=== PATIENT | male | born 1975 | race Caucasian/White ===

== ENCOUNTER → 2022-03-20 15:35 | Outpatient (CLI) | payer BC, SELFPAY ==
[2022-03-20 18:54] LABS: Basophils # 0.1 K/mm3 (0-0.2); Basophils % 1.5 % (0.1-2.0); Eosinophils # 0.2 K/mm3 (0.0-0.4); Eosinophils % 2.7 % (0.1-12.0); Hematocrit 42.4 % (42.0-52.0); Hemoglobin 13.7 g/dL (14.1-18.0); Lymphocytes # 1.7 K/mm3 (0.7-4.5); Lymphocytes % 32.1 % (10-50); Mean Corpuscular HGB Conc 32.5 g/dL (31.8-35.4); Mean Corpuscular Hemoglobin 32.5 pg (27.0-31.2); Mean Platelet Volume 9.3 fl (7.4-10.4); Monocytes # 0.4 K/mm3 (0.1-1.0); Monocytes % 6.6 % (1.7-9.3); Neutrophils # 3.1 K/mm3 (1.8-7.8); Neutrophils % 57.1 % (37.0-80.0); Platelet Count 187 K/mm3 (142-424); Red Blood Count 4.24 M/mm3 (4.60-6.20); White Blood Count 5.4 K/mm3 (4.8-10.8)
[2022-03-20 18:57] LABS: Alanine Aminotransferase 23 U/L (12-78); Albumin Level 4.6 g/dl (3.5-5.0); Albumin/Globulin Ratio 1.9 (1.1-1.8); Alkaline Phosphatase 57 U/L (38-126); Aspartate Amino Transferase 34 U/L (17-59); Bilirubin,Total 0.4 mg/dl (0.2-1.3); Blood Urea Nitrogen 18 mg/dl (9-20); Calcium 9.1 mg/dl (8.4-10.2); Carbon Dioxide 20 mmol/L (22.0-30.0); Chloride 98 mmol/L (98-107); Chol/HDL Ratio 2.3 (1-3.5); Cholesterol 211 mg/dl (140-200); Estimated Glomerular Filt Rate 91 ml/min (>60); GFR (African American) 110 ML/MIN (>60); Globulin 2.4 g/dL (1.3-3.2); Glucose 114 mg/dl (74-100); HDL Cholesterol 91 mg/dl (40-60); Sodium 130 mmol/L (136-145); Triglycerides 59 mg/dl (30-150); VLDL Cholesterol 12 mg/dL (0-40)
[2022-03-20 19:15] LABS: 25-OH Vitamin D, Total 105 ng/mL (30-100); Direct LDL Cholesterol 93.47 mg/dL (100-129)
[2022-03-20 19:28] LABS: Prostate Specific Ag Screen 0.6 ng/ml (0.0-4.0); Thyroid Stimulating Hormone 2.08 uIU/mL (0.465-4.68)
[2022-03-20 19:44] LABS: Hemoglobin A1C 5.3 % (4.0-6.0)
[2022-03-20 19:47] LABS: Vitamin B12 378 pg/mL (239-931)
== END ==
PROVIDERS: PCP Nurse Practitioner; Visit Provider Nurse Practitioner
DX: I10 Essential (primary) hypertension (principal); E55.9 Vitamin D deficiency, unspecified; E53.8 Deficiency of other specified B group vitamins; Z12.5 Encounter for screening for malignant neoplasm of prostate; Z79.899 Other long term (current) drug therapy
CPT/HCPCS: 80053; 80061; 82306; 82607; 83036; 84443; 85025; G0103

== ENCOUNTER → 2023-05-01 06:50 | Outpatient (CLI) | payer BC, SELFPAY ==
[2023-05-01 19:24] LABS: Basophils # 0.1 K/mm3 (0-0.2); Basophils % 0.8 % (0.1-2.0); Eosinophils # 0.1 K/mm3 (0.0-0.4); Eosinophils % 1.4 % (0.1-12.0); Hematocrit 41.4 % (42.0-52.0); Hemoglobin 14.5 g/dL (14.1-18.0); Lymphocytes # 2.6 K/mm3 (0.7-4.5); Lymphocytes % 43.4 % (10-50); Mean Corpuscular HGB Conc 34.9 g/dL (31.8-35.4); Mean Corpuscular Hemoglobin 33.8 pg (27.0-31.2); Mean Corpuscular Volume 96.9 fl (80-94); Mean Platelet Volume 9.4 fl (7.4-10.4); Monocytes # 0.5 K/mm3 (0.1-1.0); Monocytes % 8.7 % (1.7-9.3); Neutrophils # 2.7 K/mm3 (1.8-7.8); Neutrophils % 45.7 % (37.0-80.0); Platelet Count 206 K/mm3 (142-424); Red Blood Count 4.27 M/mm3 (4.60-6.20); Red Cell Distribution Width 12.8 % (11.5-17.5)
[2023-05-01 20:07] LABS: Alanine Aminotransferase 24 U/L (12-78); Albumin Level 4.3 g/dl (3.5-5.0); Albumin/Globulin Ratio 1.5 (1.1-1.8); Alkaline Phosphatase 43 U/L (38-126); Anion Gap 10.6 mEq/L (5-15); Aspartate Amino Transferase 30 U/L (17-59); Bilirubin,Total 0.3 mg/dl (0.2-1.3); Blood Urea Nitrogen 14 mg/dl (9-20); Calcium 8.6 mg/dl (8.4-10.2); Carbon Dioxide 25 mmol/L (22.0-30.0); Chloride 93 mmol/L (98-107); Chol/HDL Ratio 2.1 (1-3.5); Cholesterol 196 mg/dl (140-200); Estimated Glomerular Filt Rate 80 ml/min (>60); GFR (African American) 97 ML/MIN (>60); Globulin 2.8 g/dL (1.3-3.2); Glucose 98 mg/dl (74-100); HDL Cholesterol 94 mg/dl (40-60); Potassium 4.6 mmoL/L (3.5-5.1); Sodium 124 mmol/L (136-145); Total Protein,Serum 7.1 g/dl (6.3-8.2); Triglycerides 59 mg/dl (30-150); VLDL Cholesterol 12 mg/dL (0-40)
[2023-05-01 20:16] LABS: 25-OH Vitamin D, Total 87.5 ng/mL (30-100)
[2023-05-01 20:18] LABS: Direct LDL Cholesterol 96.55 mg/dL (100-129)
[2023-05-01 20:39] LABS: Hemoglobin A1C 5.2 % (4.0-6.0)
[2023-05-01 20:41] LABS: Prostate Specific Ag Screen 0.6 ng/ml (0.0-4.0); Thyroid Stimulating Hormone 2.25 uIU/mL (0.465-4.68)
[2023-05-01 20:59] LABS: Vitamin B12 727 pg/mL (239-931)
[2023-05-01 22:31] LABS: Creatinine,Urine Random 78 mg/dL (Not Estab.); Microalbumin < 6.000 mg/L (0-16.7)
== END ==
LOC: LAB.DROPOF 05-02 06:50
PROVIDERS: PCP Nurse Practitioner; Visit Provider Nurse Practitioner
DX: E53.8 Deficiency of other specified B group vitamins (principal); E55.9 Vitamin D deficiency, unspecified; I10 Essential (primary) hypertension; M32.9 Systemic lupus erythematosus, unspecified; Z12.5 Encounter for screening for malignant neoplasm of prostate
CPT/HCPCS: 80053; 80061; 82043; 82306; 82570; 82607; 83036; 84443; 85025; G0103

== ENCOUNTER 2023-12-04 11:08 | Outpatient (CLI) | payer BC, SELFPAY ==
[2023-12-04 18:29] LABS: Alanine Aminotransferase 75 U/L (12-78); Albumin Level 4.3 g/dl (3.5-5.0); Albumin/Globulin Ratio 1.7 (1.1-1.8); Alkaline Phosphatase 44 U/L (38-126); Anion Gap 10.6 mEq/L (5-15); Aspartate Amino Transferase 70 U/L (17-59); Bilirubin,Total 0.7 mg/dl (0.2-1.3); Blood Urea Nitrogen 14 mg/dl (9-20); Calcium 9.5 mg/dl (8.4-10.2); Carbon Dioxide 24 mmol/L (22.0-30.0); Chloride 94 mmol/L (98-107); Estimated Glomerular Filt Rate 121 ml/min (>60); GFR (African American) 147 ML/MIN (>60); Globulin 2.5 g/dL (1.3-3.2); Glucose 95 mg/dl (74-100); Potassium 4.6 mmoL/L (3.5-5.1); Sodium 124 mmol/L (136-145); Total Protein,Serum 6.8 g/dl (6.3-8.2)
== END 2023-12-04 23:59 | disposition home or self-care (01) ==
LOC: LAB.DROPOF 12-05 11:08
PROVIDERS: PCP Nurse Practitioner; Visit Provider Nurse Practitioner
DX: I10 Essential (primary) hypertension (principal)
CPT/HCPCS: 80053

== ENCOUNTER 2024-06-02 15:35 | Outpatient (CLI) | payer BC, SELFPAY ==
[2024-06-02 18:16] LABS: Basophils # 0.1 K/mm3 (0-0.2); Basophils % 1.1 % (0.1-2.0); Eosinophils # 0.1 K/mm3 (0.0-0.4); Eosinophils % 2.2 % (0.1-12.0); Hematocrit 40.5 % (42.0-52.0); Hemoglobin 14.6 g/dL (14.1-18.0); Lymphocytes # 2.2 K/mm3 (0.7-4.5); Lymphocytes % 39.1 % (10-50); Mean Corpuscular Hemoglobin 33.6 pg (27.0-31.2); Mean Corpuscular Volume 93.3 fl (80-94); Monocytes # 0.5 K/mm3 (0.1-1.0); Monocytes % 8.9 % (1.7-9.3); Neutrophils # 2.7 K/mm3 (1.8-7.8); Neutrophils % 48.5 % (37.0-80.0); Platelet Count 196 K/mm3 (142-424); Red Blood Count 4.34 M/mm3 (4.60-6.20); Red Cell Distribution Width 12.2 % (11.5-17.5); White Blood Count 5.5 K/mm3 (4.8-10.8)
[2024-06-02 19:31] LABS: Alanine Aminotransferase 20 U/L (12-78); Alkaline Phosphatase 42 U/L (38-126); Aspartate Amino Transferase 28 U/L (17-59); Bilirubin,Total 0.4 mg/dl (0.2-1.3); Blood Urea Nitrogen 16 mg/dl (9-20); Chloride 99 mmol/L (98-107); Estimated Glomerular Filt Rate 80 ml/min (>60); GFR (African American) 97 ML/MIN (>60); Glucose 94 mg/dl (74-100); Potassium 4.4 mmoL/L (3.5-5.1); Sodium 129 mmol/L (136-145); Total Protein,Serum 6.9 g/dl (6.3-8.2)
[2024-06-02 19:45] LABS: Albumin Level 4.6 g/dl (3.5-5.0); Anion Gap 12.4 mEq/L (5-15); Carbon Dioxide 22 mmol/L (22.0-30.0); Globulin 2.3 g/dL (1.3-3.2)
[2024-06-02 19:58] LABS: 25-OH Vitamin D, Total 91.8 ng/mL (30-100)
[2024-06-02 20:16] LABS: Prostate Specific Ag Screen 0.5 ng/ml (0.0-4.0); Thyroid Stimulating Hormone 1.57 uIU/mL (0.465-4.68)
[2024-06-02 20:35] LABS: Vitamin B12 556 pg/mL (239-931)
[2024-06-02 21:23] LABS: Microalbumin/Creatinine Ratio 11.1
[2024-06-02 21:25] LABS: Creatinine,Urine Random 85 mg/dL (Not Estab.)
[2024-06-02 21:27] LABS: Hemoglobin A1C 5.2 % (4.0-6.0)
== END 2024-06-02 23:59 | disposition home or self-care (01) ==
LOC: LAB.DROPOF 06-04 08:43
PROVIDERS: PCP Nurse Practitioner; Visit Provider Nurse Practitioner
DX: Z12.5 Encounter for screening for malignant neoplasm of prostate (principal); E53.8 Deficiency of other specified B group vitamins; E55.9 Vitamin D deficiency, unspecified; M32.9 Systemic lupus erythematosus, unspecified; I10 Essential (primary) hypertension; Z68.27 Body mass index [BMI] 27.0-27.9, adult; E66.3 Overweight; F17.200 Nicotine dependence, unspecified, uncomplicated
CPT/HCPCS: 80053; 82043; 82306; 82570; 82607; 83036; 84443; 85025; G0103

== ENCOUNTER 2025-01-14 15:51 | Outpatient (CLI) | payer BC, SELFPAY ==
[2025-01-14 21:09] LABS: Albumin Level 4.6 g/dl (3.5-5.0); Chloride 94 mmol/L (98-107)
[2025-01-14 21:10] LABS: Potassium 4.6 mmoL/L (3.5-5.1); Sodium 125 mmol/L (136-145)
[2025-01-14 21:12] LABS: Alanine Aminotransferase 26 U/L (12-78); Anion Gap 11.6 mEq/L (5-15); Aspartate Amino Transferase 31 U/L (17-59); Blood Urea Nitrogen 11 mg/dl (9-20); Carbon Dioxide 24 mmol/L (22.0-30.0); Creatinine,Serum 0.70 mg/dl (0.66-1.25); Estimated Glomerular Filt Rate 120 ml/min (>60); GFR (African American) 146 ML/MIN (>60)
[2025-01-14 21:13] LABS: Albumin/Globulin Ratio 1.9 (1.1-1.8); Alkaline Phosphatase 46 U/L (38-126); Bilirubin,Total 0.7 mg/dl (0.2-1.3); Calcium 9.5 mg/dl (8.4-10.2); Cholesterol 212 mg/dl (140-200); Globulin 2.4 g/dL (1.3-3.2); Glucose 72 mg/dl (74-100); HDL Cholesterol 92 mg/dl (40-60); Total Protein,Serum 7.0 g/dl (6.3-8.2); Triglycerides 59 mg/dl (30-150)
[2025-01-14 21:32] LABS: 25-OH Vitamin D, Total 72.5 ng/mL (30-100)
[2025-01-14 23:09] LABS: Vitamin B12 1560 pg/mL (239-931)
--- OUTSIDE RECORDS SUMMARY | 2025-01-15 13:16 | XMS_ITS | Encounter Summary ---
Author Organization [facility] Address [facility] [place] [address] Care Team Providers Care Master Ocean Name Role Phone Tami, Danelle Ponce Primary Care Provider [phone] Encounter Details Date Type Department Care Team (Late st Contact Info) Description 01/30/2019 Lab Requisition [facility] [place] [address] [facility] [address] [place] [address] Resistance to penicillins Social History Tobacco Use Types Packs/Day Years Used Date Smoking Tobacco: Every Day Cigarettes Alcohol Use Standard Drinks/Week Comments Yes 0 (1 standard drink = 0.6 oz pur e alcohol) a few every night Sex and Gender Information Value Date Recorded Sex Assigned at Not on file Legal Sex Male 1:47 AM EDT Gender Identity Not on file Sexual Orientation Not on file documented as of this encounter Plan of Treatment Not on file documented as of this encounter Procedures Procedure Name Priority Date/Time Associated Diagnosis Comments WOUND CULTURE (STAIN INCLUDED) Routine 01/30/2019 5:00 PM EDT Resistance to penicillins documented in this encounter Results * (ABNORMAL) WOUND CULTURE (STAIN INCLUDED) (01/30/2019 5:00 PM EDT) Culture No Growth at 72 hours. 02/03/2019 11:05 AM EDT [facility] [employer] Stain Moderate WBCs(A) 02/03/2019 11:05 AM EDT [facility] Stain Abundant Gram positive cocci(A) 02/03/2019 11:05 AM EDT [facility] Stain Abundant Gram negative rods(A) 02/03/2019 11:05 AM EDT [facility] Stain Few Gram positive rods(A) 02/03/2019 11:05 AM EDT [facility] Swab BUTTOCK STRUCTURE / Unknown 01/30/2019 5:00 PM EDT 01/30/2019 7:23 PM EDT [facility] [employer] [facility]PA[facility]ER MICROBIOLOGY - GENERAL ORDERABLES Final Result [facility] [address] [facility] , [place] [address] documented in this encounter Visit Diagnoses Diagnosis 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
--- OUTSIDE RECORDS SUMMARY | 2025-01-15 13:16 | XMS_ITS | Encounter Summary ---
Author Organization [place] Address [facility] [place] [address] Care Team Providers Care Mobile Battery Technician Name Role Phone Tami Danelle Ponce Primary Care Provider [phone] Encounter Details Date Type Department Care Team (Latest Contact Info) Description 08/27/2018 Lab Requisition [facility] LABORATORY [facility] [place] [address] [address]eth, [facility] [address] [place] [address] Systemic lupus erythematosus with organ system involvement (HCC) Social History Tobacco Use Types Packs/Day Years [...] Procedure Name Priority Date/Time Associated Diagnosis Comments CBC WITH DIFF Routine 08/27/2018 4:00 PM EDT Systemic lupus erythematosus with organ system involvement (HCC) ANTINUCLEAR ANTIBODIES (YOLANDA) SCREEN BY AMINATA W/ REFLEX TO IFA Routine 08/27/2018 4:00 PM EDT Systemic lupus erythematosus with organ system involvement (HCC) BLOOD UREA NITROGEN Routine 08/27/2018 4 :00 PM EDT Systemic lupus erythematosus with organ system involvement (HCC) CREATININE Routine 08/27/2018 4:00 PM EDT Systemic lupus erythematosus with organ system involvement (HCC) documented in this encounter Results * CREATININE (08/27/2018 4:00 PM EDT) Creatinine 0.94 0.67 - 1.30 mg/dL 08/27/2018 7:25 PM EDT [facility] [employer] [facility] GFR Afr Am 116 >=60 mL/min/1.7 3 m2 08/27/2018 7:25 PM EDT [facility] GFR Non Afr Am 100 >=60 mL/min/1.7 3 m2 08/27/2018 7:25 PM EDT [facility] Comment: This estimated GFR was calculated using CKD-EPI equation which is modified based on ethnicity for Non Americans and Americans. Both results are reported since it is not always possible to determine the patient's ethnicity. This equation should only be used for individuals 18 and older. It has not been validated for use with the elderly (>70 years), women, or in some racial or ethnic subgroups, such as Hispanics. The equation will be less accurate in people with differences in nutritional status or muscle mass. Blood VENOUS BLOOD / Unknown 08/27/2018 4:00 PM EDT 08/27/2018 6:41 PM EDT Beth Rincon [facility] CHEMISTRY ORDERABLES Fi nal Result Apartment List [facility] [address] [facility] , [place] [address] [facility] [address] [place] [address] * (ABNORMAL) CBC WITH DIFF (08/27/2018 4:00 PM EDT) WBC 4.0 3.7 - 10.3 x10(3)/mcL 08/27/2018 7:06 PM EDT Apartment List [facility] RBC 4.38(L) 4.60 - 6.10 x10(6)/mcL 08/27/2018 7:06 PM EDT [facility] Hgb 14.1 13.7 - 17.5 g/dL 08/27/2018 7:06 PM EDT [facility] Hct 41.5 40.0 - 51.0 % 08/27/2018 7:06 PM EDT [facility] MCV 94.7 79.0 - 98.0 fL 08/27/2018 7:06 PM EDT [facility] MCH 32.2(H) 26.0 - 32.0 pg 08/27/2018 7:06 PM EDT [facility] MCHC 34.0 30.7 - 35.5 g/dL 08/27/2018 7:06 PM EDT [facility] RDW 12.5 <=14.9 % 08/27/2018 7:06 PM EDT [facility] Platelet 154(L) 155 - 369 x10(3)/mcL 08/27/2018 7:06 PM EDT [facility] MPV 11.3 8.8 - 12.5 fL 08/27/2018 7:06 PM EDT [facility] Neut Percent 51.2 % 08/27/2018 7:06 PM EDT [facility] Comment:Neutrophils equals s egs plus bands Imm Gran% 0.2 % 08/27/2018 7:06 PM EDT [facility] Comment:Automated count of m etamyelocytes, myelocytes and promyelocytes. Lymph Percent 34.7 % 08/27/2018 7:06 PM EDT [facility] Irwin Percent 11.7 % 08/27/2018 7:06 PM EDT [facility] Eos Percent 1.5 % 08/27/2018 7:06 PM EDT [facility] Baso Percent 0.7 % 08/27/2018 7:06 PM EDT [facility] Neut # 2.1 1.6 - 6.1 x10(3)/mcL 08/27/2018 7:06 PM EDT [facility] Comment:Neutrophils equals s egs plus bands IMMGRAN# 0.0 0.0 - 0.1 x10(3)/mcL 08/27/2018 7:06 PM EDT [facility] Comment:Automated count of m etamyelocytes, myelocytes and promyelocytes. An absolute IG <0.1 is reported as 0.0. Lymph # 1.4 1.2 - 3.9 x10(3)/mcL 08/27/2018 7:06 PM EDT [facility], [facility] Irwin # 0.5 0.3 - 0.9 x10(3)/mcL 08/27/2018 7:06 PM EDT [facility], [facility] Eos# 0.1 0.0 - 0.5 x10(3)/mcL 08/27/2018 7:06 PM EDT [facility] [employer], [facility] Baso # 0.0 0.0 - 0.1 x10(3)/mcL 08/27/2018 7:06 PM EDT [facility] [employer], [facility] Blood VENOUS BLOOD / Unknown 08/27/2018 4:00 PM EDT 08/27/2018 6:[address] [facility] HEMATOLOGY ORDERABLES F inal Result Performing Organization Address City/[facility] Co de Phone Number [facility] [employer] , [place] [address] * BLOOD UREA NITROGEN (08/27/2018 4:00 PM EDT) [facility] BUN 10 6 - 20 mg/dL 08/27/2018 7:25 PM EDT [facility] Blood VENOUS BLOOD / Unknown 08/27/2018 4:00 PM EDT 08/27/2018 6:[address] [facility] CHEMISTRY ORDERABLES Fi nal Result Performing Organization Address [facility] Co de Phone Number [address] , [place] [address] * (ABNORMAL) ANTINUCLEAR ANTIBODY SCREEN (08/27/2018 4:00 PM EDT) [facility] YOLANDA, IgG Positive( A) Negative, Equivocal 08/28/2018 2:27 PM EDT [facility] Comment: YOLANDA samples are screened using an automated EIA assay. All samples that screen positive are titered by an IFA method and will include an YOLANDA pattern. A titer of < 1:80 is considered clinically insignificant. In general, a titer >= 1:160 is considered significant positive. YOLANDA Titer <1:80 <1:80 08/28/2018 2:27 PM EDT [facility] [employer] Blood VENOUS BLOOD / Unknown 08/27/2018 4:00 PM EDT 08/27/2018 6:[address] [facility] R[facility]con [facility] IMMUNOLOGY ORDERABLES F inal Result [employer] [address] [facility] , [place] [address] documented in this encounter Visit Diagnoses Diagnosis Systemic lupus erythematosus with organ system involvement (HCC) Systemic lupus erythematosus documented in this encounter Care Teams Mobile Battery Technician Relationship Specialty Start Date End Date Danelle Garrett [address] [place] [address] [address] [place] [address] PCP - General Family Medicine 03/21/12 documented as of this encounter
--- OUTSIDE RECORDS SUMMARY | 2025-01-15 13:16 | XMS_ITS | Clinical Summary ---
Author Organization [facility] [place] Address [address] [place] [address] Phone Care Team Providers Care Pharmacy Sales Representative Name Role Phone Danelle Garrett Kris Primary Care Provider [phone] Allergies No known active allergies Medications clobetasol (TEMOVATE) 0.05 % cream Apply 0.05 mg topically 2 times daily. Active LISINOPRIL ORAL Take 20 mg by mouth. Active pantoprazole (PROTONIX) 40 mg Oral Tablet, Delayed Release (E.C.) Take 40 mg by mouth daily. Active metoprolol (LOPRESSOR) 25 mg Oral Tablet Take 25 mg by mouth 2 times daily. Active Vit D3 & I-Acpqwanoa-Azr s [phone] soeo-fee-qr-mg Oral Tablet Take by mouth. Act salty ibuprofen (ADVIL;MOTRIN) 200 mg Oral Tablet Take 200 mg by mouth every 8 hours as needed for Pain. Active Active Problems Problem Noted Date Diagnosed Date Mass of left hip region 03/10/2019 Surgical History Surgery Date Site/Laterality Comments HERNIA REPAIR X2 SOFT TISSUE BIOPSY 04/08/2019 Left Excisional Biopsy Left Gluteal Mass; Surgeon: Gregorio Schroeder MD; Location: [facility] MAIN OR; Service: General Medical History Medical History Date Comments Hypertension Social History Tobacco Use Types Packs/Day Years Used Date Smoking Tobacco: Every Day Cigarettes 1 20 Smokeless Tobacco: Never Tobacco Cessation:Ready to Q uit: Yes; Counseling Given: No Alcohol Use Standard Drinks/Week Comments Yes 6 (1 standard drink = 0.6 oz pur e alcohol) a few every night Sex and Gender Information Value Date Recorded Sex Assigned at Not on file Legal Sex Male 1:47 AM EDT Gender Identity Not on file Sexual Orientation Not on file Obstetrics History Last Filed Vital Signs Vital Sign Reading Time Taken Comments Blood Pressure 124/70 04/28/2019 4:01 PM EST Pulse 78 04/08/2019 9:52 AM EST Temperature 36.7 C (98 F) 04/28/2019 4:01 PM EST Respiratory Rate 16 04/28/2019 4:01 PM EST Oxygen Saturation 100% 04/08/2019 10:01 AM EST Inhaled Oxygen Concentration - - Weight 77.1 kg (170 lb) 04/28/2019 4:01 PM EST Height 177.8 cm (5' 10 ) 04/08/2019 8:02 AM EST Body Mass Index 24.39 04/08/2019 8:02 AM EST Plan of Treatment Health Maintenance Due Date Last Done Comments Annual Wellness Exam 01/04/1980 DTaP/TDaP/Td (1 - Tdap) 01/04/1996 Hepatitis B Vaccine (1 of 3 - 19+ 3-dose series) 01/04/1996 Cologuard 2022 Colon Cancer Screening 2022 Colonoscopy 2022 FIT 2022 Sigmoidoscopy 2022 Virtual Colonography 2022 COVID-19 Vaccine (1 - 2023-2 5 season) 2024 Influenza Vaccine (#1) 2025 Meningococcal B Vaccine Aged Out No l onger eligible based on patient's age to complete this topic Pneumococcal Vaccine 0-49 Aged Out No longer eligible based on patient's age to complete this topic Insurance PPO [facility] PPO Care Teams Pharmacy Sales Representative Relationship Specialty Start Date End Date Danelle Garrett [address] [facility] [address] [place] [address] PCP - General Family Medicine 03/21/12
== END 2025-01-14 23:59 | disposition home or self-care (01) ==
LOC: LAB.DROPOF 01-15 13:14
PROVIDERS: PCP Nurse Practitioner; Visit Provider Nurse Practitioner
DX: E55.9 Vitamin D deficiency, unspecified (principal); I10 Essential (primary) hypertension; E53.8 Deficiency of other specified B group vitamins; Z13.6 Encounter for screening for cardiovascular disorders
CPT/HCPCS: 80053; 80061; 82306; 82607

== ENCOUNTER 2025-02-18 09:13 | Outpatient (CLI) | payer BC, SELFPAY ==
--- NOTE | 2025-02-18 09:30 | CA_ITS ---
FINAL REPORT TECHNIQUE: Grayscale, color Doppler and duplex Doppler ultrasound of the kidneys, aorta and renal arteries was performed. Multiple velocities were measured. CLINICAL HISTORY: HTN COMPARISON: None FINDINGS: Aorta velocity: 114 cm/sec Right kidney: 11.3 cm. No evidence of hydronephrosis or mass. Right intrarenal RI: 0.57-0.72 Right renal artery velocity: 149 cm/sec. Right RAR (Renal artery-Aortic Ratio): 1.31 Left Kidney: 11.3 cm. No evidence of hydronephrosis or mass. Left intrarenal RI: 0.44-0.64 Left renal artery velocity: 228 cm/sec. Left RAR (Renal Artery-Aortic Ratio): 2.0 IMPRESSION: No evidence of significant renal artery stenosis on the right with less than 60% renal artery stenosis on the left. CT angiogram or postcontrast MR angiogram would be more sensitive for evaluation of possible renal artery stenosis. Reviewed, Interpreted and Dictated by Chester Leal MD Transcribed by Cass Jones Authenticated and . [facility]
== END 2025-02-18 23:59 | disposition home or self-care (01) ==
LOC: RT 09:14
PROVIDERS: PCP Nurse Practitioner; Visit Provider Nurse Practitioner
DX: I70.1 Atherosclerosis of renal artery (principal); I1A.0 Resistant hypertension; I10 Essential (primary) hypertension
CPT/HCPCS: 93976

== ENCOUNTER 2025-02-25 11:14 | Outpatient (CLI) | payer BC, SELFPAY ==
[2025-03-02 16:12] LABS: Renin Activity, Plasma 0.673 ng/mL/hr (0.167-5.380)
== END 2025-02-25 23:59 | disposition home or self-care (01) ==
LOC: LAB.DROPOF 02-27 00:16
PROVIDERS: PCP Physician Assistant; Visit Provider Physician Assistant
DX: I10 Essential (primary) hypertension (principal)
CPT/HCPCS: 82088; 84244

== ENCOUNTER 2025-03-19 09:56 | Outpatient (CLI) | payer BC, SELFPAY ==
--- OUTSIDE RECORDS SUMMARY | 2020-06-01 09:50 | XMS_ITS | Continuity of Care Document ---
Author Organization [facility] Address [address] [place] [address] Phone Care Team Providers Care Sinter Feeder Name Role Phone Frankie Robles MD Unavailable Unavailable Allergies, Adverse Reactions, Alerts Substance Reaction Status Criticality No Known Allergies Active No Inform ation Medications Medication Instructions Dosage Effective Dates (start - stop) Status Comments Restasis 0.05 % eye drops in a dropperette instill 1 drop by ophthalmic route every 12 hours into affected eye(s) - Active Systane (PF) 0.4 %-0.3 % eye drops in a dropperette instill 1 drop by ophthalmic route 3 times every day as needed 1 drop - Active PRN Dry Eye [place] Benefits ORAL CAPSULE take 3 capsules by oral route daily - Active ibuprofen 200 mg capsule take 1 capsule by oral route every 6 hours as needed 200 MG - Active lisinopril 20 mg tablet take 1 tablet by oral route every day 20 MG - Active metoprolol succinate ER 25 mg tablet,extended release 24 hr take 1 tablet by oral route every day 25 MG - Active pantoprazole 40 mg tablet,delayed release take 1 tablet by oral route every day 40 MG - Active Vitamin D3 5,000 unit tablet - Active Procedures Procedure Date Post Op Follow Up Visit Post Op Follow Up Visit Post Op Follow Up Visit Post Op Follow Up Visit Void Ticket Laser Vision Screening Laser Vision Screening Eye Exam Established Patient Comprehensi ve 1 Or More Visits OFFICE/OUTPATIENT VISIT, EST CORNEAL TOPOGRAPHY OFFICE/OUTPATIENT VISIT, EST CORNEAL TOPOGRAPHY OFFICE/OUTPATIENT VISIT, EST MICROFLUID SVETA TEARS MICROFLUID SVETA TEARS OFFICE/OUTPATIENT VISIT, EST OFFICE/OUTPATIENT VISIT, EST OFFICE/OUTPATIENT VISIT, EST Laser Vision Screening OFFICE/OUTPATIENT VISIT, EST OFFICE/OUTPATIENT VISIT, EST OFFICE/OUTPATIENT VISIT, EST OFFICE CONSULTATION Advance Directives Directive Yes / No Effective Date File Name No Information Encounters Encounter Description Practice Location Reason(s) For Visit Diagnoses Date Provider Providers Copied on Encounter [facility], [address] [place] [address], [id number], tel:[phone] [facility] 4 [place]D [place] (chief complaint) Post-Op: LASIK OU 1 Travis David. [address] [place] [address], [id number] . tel:[phone] Referring Provider: Frankie Perea [address] [place] [address], [address] . tel:[phone] [facility] Physician s, [address] [place] [address], [id number], [place] tel:[phone] [facility] [place] 02/06/2020 (chief complaint) Post-Op: LASIK OU Oct-2 0-202 0 Travis David. [address] [place] [address], [id number] . tel:[phone] Referring Provider: Frankie Perea [address] [place] [address], [id number] . tel:[phone] [facility], [address] [place] [address], [id number], [place] tel:[phone] [facility] 1 Week PO iD [place] OU (chief complaint) Post-Op: LASIK OU 0 Travis David. [address] [facility] [place], [id number] . tel:[phone] Referring Provider: Frankie Perea, [address] [place], [address] . tel:[phone] [facility], [address] [facility] [place], [address], [place] tel:[phone] [facility] [place]D [place] 02/06/2020 (chief complaint) Post-Op: LASIK OU 0 Travis David. [address] [facility] [place], [id number] . tel:[phone] Referring Provider: Frankie Perea, [address] [place], [address] . tel:[phone] [facility] Physician s, [address] [facility] [place], [address], [place] tel:[phone] [facility] No Information 0 Travis David. [address] [facility] [place], [id number] . tel:[phone] Referring Provider: Frankie Perea, [address] [place], [address] . tel:[phone] [facility] Physician s, [address] [facility] [place], [address], [place] tel:[phone] [facility] Unspecified disorder of refraction 0 Travis David. [address] [facility] [place], [id number] . tel:[phone] Referring Provider: Frankie Perea, [address] [place], [address] . tel:[phone] [facility], [address] [employer] [facility] [place], [address], [place] tel:[phone] [facility] Unspecified disorder of refraction 0 Travis David. [address] [place], [place], [id number] . tel:[phone] Referring Provider: Frankie Perea, [address] [place], [address] . tel:[phone] [facility], [address] [place], [address], [place] tel:[phone] I Vergas 6 mth f/u Dry Eye, Keratitis (chief complaint) Cornea - Keratitis, other Nov-0 8 9 Travis David. [address] [place], [place], [id number] . tel:[phone] Referring Provider: Frankie Perea, [address] [place], [address] . tel:[phone] OFFICE/OUTPAT IENT VISIT, EST [facility], [address] [place], [address], [place] tel:[phone] [facility]as 6 mth f/u Dry Eye (chief complaint) Ext - Sicca syndrome, not associated with Sjogren's, both eyes September-0 9 Travis David. [address] [place], [place], [id number] . tel:[phone] Referring Provider: Frankie Perea, [address] [place], [address] . tel:[phone] OFFICE/OUTPAT IENT VISIT, EST [facility], [address] [place], [address], [place] tel:[phone] [facility] Vergas cornea recheck (chief complaint) Ext - Sicca syndrome, not associated with Sjogren's, both eyes 0 8 Travis David. [address] [place], [place], [id number] . tel:[phone] Referring Provider: Frankie Perea, [address] [place], [address] . tel:[phone] OFFICE/OUTPAT IENT VISIT, EST [facility], [address] [place], [address], [place] tel: [phone] [facility] follow up (chief complaint) Med - Collagen vascular disease, unspExt - Sicca syndrome, not associated with Sjogren's, both eyesCornea - Keratitis, other September-0 8 Travis David. [address] [place], [place], [id number] . tel: [phone] Referring Provider: Frankie Perea, [address] [place], [address] . tel:[phone] OFFICE/OUTPAT IENT VISIT, EST [facility], [address] [place], [address], [place] tel: [phone] [facility] follow up (chief complaint) Ext - Sicca syndrome, not associated with Sjogren's, both eyesCornea - Keratitis, other 7 Travis David. [address] [place], [place], [id number] . tel:[phone] Referring Provider: No Ref Doc No Referring Doc. OFFICE/OUTPAT IENT VISIT, EST [facility], [address] [place], [address], [place] tel:[phone] [facility] follow up (chief complaint) Keratoconjunct sicca, not specified as Sjogren's, bilateralKerat oconjunctiviti s due to Acanthamoeba 7 Travis David. [address] [place], [place], [id number] . tel:[phone] Referring Provider: Frankie Perea, [address] [place], [address] . tel:[phone] OFFICE/OUTPAT IENT VISIT, EST [facility], [address] [place], [address], [place] tel:[phone] [facility] 1 mth f/u Severe k-sicca and cl intolerance (chief complaint) Ext - Sicca syndrome, not associated with Sjogren's, both eyesMed - Collagen vascular disease, unspCornea - Keratitis, otherKeratocon junctivitis due to Acanthamoeba Mar- 6 Travis David. [address] [place], [place], [id number] . tel:[phone] Referring Provider: Frankie Perea, [address] [place], [address] . tel:[phone] [facility], [address] [place], [address], [place] tel:[phone] [facility] V[facility] Unspecified disorder of refraction 6 Travis David. [address] [place], [place], [id number] . tel:[phone] Referring Provider: Yonatan Aguilar, [address] [place] [address] [address], [place], [address] . tel:[phone] OFFICE/OUTPAT IENT VISIT, EST [facility], [address] [place], [address], [place] tel:[phone] [facility] 2 MO CHK CORNEA SUBEPITHELIAL HAZE OU (chief complaint) Corneal subepithelial haze of both eyes 6 [facility]. [address] [place] [address], [address], [place], [place], [id number] . tel: [phone] Referring Provider: Hayes Romero, [address], [place], [address]. tel:[phone] OFFICE/OUTPAT IENT VISIT, EST [facility], [address] [place], [address], [place] tel:[phone] [facility] 6-8 wk check on subepi haze (chief complaint) Corneal subepithelial haze of both eyes 6 [facility]. [address] [place] [address], [address], [place], [place], [id number] . tel:[phone] Referring Provider: Hayes oRmero, [address], [place], [address]. tel:[phone] OFFICE/OUTPAT IENT VISIT, EST [facility], [address] [place], [address], [place] tel:[phone] [facility] cornea follow up (chief complaint) Corneal subepithelial haze of both eyes 6 [facility]. [address] [place] [address], [address], [place], [place], [id number] . tel:[phone] Referring Provider: Hayes Romero, [address] [place], [facility]. tel:[phone] OFFICE CONSULTATION [facility], [address] [place], [address], [place] tel:[phone] [facility] corneal consult for corneal edema (chief complaint) Corneal subepithelial haze of both eyes 6 [facility]. [address] [place] [address], [address], [place], [place], [id number] . tel:[phone] Referring Provider: Hayes Romreo, [address] [place], [address]. tel:[phone] Family History Family Member Type Diagnosis Age At Onset Father Problem (finding) hypertension Problem (finding) No family history of Ca ncer, unknown Mother Problem (finding) hypertension Problem (finding) No family history of Gl aucoma Father Problem (finding) Maternal history of minal betes mellitus Problem (finding) No family history of Ca taracts Problem (finding) No family history of Re tinal disease Payers Payer name Insurance type Covered green party ID Miladis carrasco(s) Frances Barros Bs Local [facility] [id number] Social History Type Description Quantity Date Captured Comments Alcohol Use Details Caffeine Use Details Tobacco Use Status Heavy cigarette smok er (20-39 cigs/day) Smoking Status Heavy tobacco smoker Smoking Tobacco Use Details Cigarette: Age Started: 22 Cigarette: 1 Packs per day Sex Male Chief Complaint And Reason For Visit From encounter dated '06/01/2020 13:50'. 4 months s/p iD [place] (chief complaint). Description: The 45 year old male presents for evaluation of 4 months s/p iD [place] in the right and left eyes. Pt states vision has been pretty good s/p LASIK. Pt denies flashes, floaters, and eye pain. Pt is using ATs q2h while awake. Reason For Referral Reason For Referral No Information Plan Of Treatment Date Type Action Status Goal Tobacco cessation counseling completed Goal Tobacco cessation counseling completed Goal Tobacco cessation counseling completed Patient Education Refresh Optive Sensitiv e (PF) 0.5 %-0~ completed Patient Education Restasis 0.05 % eye khris ps in a droppe~ completed Patient Education Restasis 0.05 % eye khris ps in a droppe~ completed History Of Present Illness Encounter Date Complaint History Of Prese nt Illness 4 months s/p iD [place] The 45 year o ld male presents for evaluation of 4 months s/p iD [place] in the right and left eyes. Pt states vision has been pretty good s/p LASIK. Pt denies flashes, floaters, and eye pain. Pt is using ATs q2h while awake. s/p iD [place] 02/06/2020 The 45 year old male presents for evaluation of s/p iD [place] 02/06/2020 in the right eye and left eye. Patient remains very happy with this vision. He has noticed some mild fluctuations from day to day. Patient denies any pain or discomfort. Patient is currently using the following ocular medications: Restasis 2/2 up until a couple of weeks ago when he ran out. He will need his rx refilled. He is using [employer] Systaine about every 1.5 hours OU. 1 Week PO iD [place] OU The 45 year o ld male presents for evaluation of 1 Week PO iD [place] OU in the right and left eyes. Pt describes vision as getting better every day. 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 Denies eye pain, flashes, floaters, or headaches. Pt denies any problems with postoperative instructions.Drops:Gati 4/4Pred 4/4Restasis 2/2Systane PF 11/24 s/p iD [place] 02/06/2020 The 45 year old male presents for evaluation of s/p iD [place] 02/06/2020 in the right eye and left eye. Patient is happy with vision following LASIK. Patient denies any pain or discomfort today. Post-op instructions and drop schedule have been reviewed with patient and patient expresses understanding. Patient is using the following ocular medication: Prednisolone and Gatifloxacin every other hour alternating with AT's. Patient also using Restasis 2/2 and would like to confirm that he should continue using it. 6 mth f/u Dry Eye, Keratitis The 44 year old male presents for 6 mth f/u Dry Eye, Keratitis in the right and left eyes. Va is good OU. Pt taking refresh optive QID OU, and Restasis BID for dryness. Pt thinks eyes are about the same no changes. Denies any scratchiness or irritation. Penta done today 6 mth f/u Dry Eye The 43 year ol d male presents for 6 mth f/u Dry Eye and hx of keratitis in the right and left eyes. Pt feels eyes are doing ok. Pt thinks the oral meds he is on may be contributing to his dry eye. Pt just changed his BP med to Lisinopril. Pt still using Restasis BID OU, and refresh Q 3 hrs OU. Penta done today.. Hx Discloid Lupus cornea recheck The 43 year old male presents for evaluation of cornea recheck in the right and left eyes. Patient feels vision is unchanged from 6 months ago. Only able to start Restasis a week ago. He has been using tears q3hr. follow up The 42 year old male presents for complete dilated follow up in the right and left eyes. Hx of dry eye, keratitis with negative Sjogren's testing. Still interested in gls free vision correction if possible. Current regimine is Tears q3hrs while awake and ibuprophen. Patient ran out of restasis in June and unable to get more due to insurance denial. Work-up today for Restasis. Last wore contacts about 2 years ago. He feels vision is stable and does not feel dryness has been worse. He feels eyes are better in the morning and get more dry as the day continues. Tear Osmo - OD: 293 OS: 284. BTS - OS: 20 OS: 25. follow up The 42 year old male presents for 6 month follow up of dry eye/keratitis in the right and left eyes. Pt sts va seems stable without changes. Pt sts he feels the dry eye is improving. Currently using Restasis BID OU, Tears q3hr OU. Pt denies irritation/pain. Overall pt sts even though hes noted improvement in dryness he still has dry eye. follow up The 41 year old male presents for 6 month follow up in the right and left eyes. Hx of dry eye, keratitis and interest in glasses free correction. Patient started Restasis in July and already feels improvement in both dryness and vision. He also uses tears q2hrs. Patient is currently on doxycycline for a brief time (21 days) for a recent tick and prevention of illness/infection from it. 1 mth f/u Severe k-s icca and cl intolerance The 41 year old male presents for 1 mth f/u Severe k-sicca and cl intolerance in the right and left eyes. Pt feels vision seems alot clearer since he's been using his non-pres tears Q 2 hrs OU. Bloodwork done that [place] ordered and faxed today to [facility]. PT says his PCP ordered bloodwork on his Vitamin D levels and still needs to get results from that. Pt has been out of contacts since Jan. Bloodwork: +YOLANDA, -RF, -SSA,SSB 2 MO CHK CORNEA SUBE PITHELIAL HAZE OU The 41 year old male presents for evaluation of 2 MO CHK CORNEA SUBEPITHELIAL HAZE OU in the right and left eyes. Va hasn't been as clear over last 2 days. Fell asleep in contacts Dec. and not been able to wear contacts since. Wore contacts 4 hours 02/04 and eyes were red x 3 days. 6-8 wk check on subepi haze The 40 year old male presents for evaluation of 6-8 wk check on subepi haze in the right and left eyes. The patient feels it is improving. The condition is described as no noticeable vision changes. Patient denies eye pain and flashes and floaters. He got glasses and states his vision is much better. cornea follow up The 40 year old male presents for evaluation of cornea follow up in the right and left eyes. It started about 6 week(s) ago. It occurs constantly. The patient feels it is improving. Pt states that things are a lot better. corneal consult for corneal kurtis a The 40 year old male presents for evaluation of corneal consult for corneal edema in the right and left eyes. The patient describes it as redness. The patient feels it is not any better. The condition is described as no noticeable vision changes. He states he was wearing contacts from May 2014 until may 2015, he then started developing redness and was told he had pink eye. After the pink eye went away, he put the contacts back in and started having the same problems again. Functional Status Date Functional Assessmen t No Information Instructions Date Instruction Additional Infor carolina Impression/Plan Related to Post- Op: LASIK OU Impression/Plan Related to Post- Op: LASIK OU Impression/Plan Related to Post- Op: LASIK OU Impression/Plan Related to Post- Op: LASIK OU - [employer] LASIK OU Related to CM A OU - good candidatecomplete exam 12/23/19Discuss increase risk of dryness issuesDiscuss minor lens changes OS - [employer] LASIK OU Related to CM A OU - good candidatecomplete exam 8/20Discuss increase risk of dryness issuesDiscuss minor lens changes OS - 1-2 weeks. 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 wait for now - check 6 months Related to See impression details - History episclerit is OD . . . doing well on ibuprofenDiscuss GI issues, may try to reduce to TIDDiscuss kidney risks... drink watercall if worse.. check 6 months - comlete Related to See impression details - Return - 6 months with Frankie Robles MD for complete eye exam. Related to See impression details - Return - 6 months with Frankie Robles MD for follow up exam. Related to See impression details - trace episcleritis OD . . . asymptomaticDiscuss findings.. hate to start steroids for this.Try ibuprofen 200 mg (stop GI) QIDcall if worse.. check 6 months Related to See impression details - Looks much better with drops...LABS: certainly has SLE as per Hx and positive YOLANDA. Sjogren ATB are negative, but given severe dry eye, could be false negative. Discuss option to consider lid Bx. Given this degree of dryness and +YOLANDA LVC is not a good idea. Perhaps SMILE procedure in future or could consider ICL. Recommend continue current treatment through winter and re-evaluate in spring if still interested in better vision without Rx.Start restasis Related to See impression details - Return - 6 months with Frankie Robles MD for follow up exam. 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 ROS sign for LUPUS - dermatologic. Needs new testing to r/o sjogrens. - - DO NOT recommend contact lenses- Recommend to [facility] for Lasik consult. Related to See impression details - Return - PRN Related to See i mpression details - Return - 2 months with Yonatan Sage MD for follow up exam. Related to See impression details - Okay to return to wearing contacts for working hours (10 hrs max-5 days a week) and then take out once patient gets home-no weekend wear.-recommend new contacts lens fit with Dr. Vann-f/u in 2 months with [facility]-advised to watch for redness OU. Related to See impression details - Return in 6 weeks to reasses vessels in peripheral cornea. Then talk about going back into SCL. Related to See impression details - Return - 6-8 week( s) with Yonatan Sage MD for follow up exam. Related to See impression details - Return - 6 week(s) with Yonatan Sage MD for follow up exam. Related to See impression details - -stay out of conta cts-observe at this time-f/u with [facility] in 5-6 wks. Related to See impression details Assessments Type Assessment Date No Information Patient Care Teams Name Effective Dates (start - stop) Status Members No Information
--- NOTE | 2025-03-19 10:15 | CA_ITS ---
APPROVED REPORT EXAM: Comprehensive 2D, Doppler, and color-flow Echocardiogram Electric Vehicle Electrician: Marlene Mendes RVT Ht: 5 ft 10 in Wt: 139lbs BSA: 1.79 BP: 180/102 mmHg Indications: HYPERTENSION,ABNORMAL EKG 2D Dimensions LA Volume 50.40 mL LA Volume Index 28.16 mL/m2 (M/F) 16-34 M-Mode Dimensions RVDd 2.32 cm (0.9-2.6) LA Diam 3.70 cm (1.9-4.0) LVDd 5.93 cm (3.5-5.7) LVDs 4.18 cm (3.5-5.7) IVSd 0.99 cm (0.6-1.1) PWd 0.65 cm (0.6-1.1) EF (Teich) 55.70% FS 29.50% EDV (Teich) 175.20 mL TAPSE 2.15 (<1.7) ESV (Teich) 77.70 mL LV Diastology E Decel Time 150 (160-240 msec) E/A Ratio 1.1 Aortic Valve LYUDMILA Index 2.42 cm2/m2 AoV Peak Keon. 122.0 (50-130 cm/s) AO Peak GR. 6.00 mmHg AO Mean GR. 3.30 (<5 mmHg) AO VTI 26.9 (18-25 cm) LYUDMILA (VTI) 4.42 (2.5-4.5 cm2) Mitral Valve MV E Max Keon. 87.0 (40-130 cm/s) MV A Velocity 76.0 (40-130 cm/s) E/A Ratio 1.14 MV PHT 44.0 ms Pulmonary Valve PV Peak Velocity 72.0 (50-150 cm/s) Left Ventricle The left ventricle is normal size. Left ventricular systolic function is low-normal. There is increased left ventricular wall thickness. There is normal LV segmental wall motion. Transmitral Doppler flow pattern suggests impaired LV relaxation. LVEF is 50% Right Ventricle The right ventricle is normal size. The right ventricular systolic function is normal. Atria The left atrium size is normal. The right atrium size is normal. There is no color Doppler evidence of interatrial shunt. Aortic Valve The aortic valve opens well. There is no hemodynamically significant aortic valvular stenosis. No aortic regurgitation is present. Mitral Valve The mitral valve is normal in structure. No evidence of mitral valve stenosis. Trace mitral regurgitation is present. Tricuspid Valve The tricuspid valve leaflets are thin and pliable. Trace tricuspid regurgitation. There is insufficient TR jet to estimate RVSP. Pulmonic Valve The pulmonary valve is grossly normal in structure. Trace pulmonic valve regurgitation is present. Great Vessels The aortic root is normal in size. IVC is normal in size and collapses >50% with inspiration. Pericardium There is no pericardial effusion. Other Information Study Quality: Fair Conclusion Low-normal LV systolic function (LVEF 50%). No significant valvular stenosis or regurgitation. Electronically signed by : Elva Amezquita MD 03/22/2025 16:04:46
--- OUTSIDE RECORDS SUMMARY | 2025-03-19 10:25 | XMS_ITS | Clinical Summary ---
Author Organization [facility] [place] Address [address] [facility] [address] [place] [address] Phone Care Team Providers Care Firmware Engineer Name Role Phone Dnaelle Garrett Kris Primary Care Provider [phone] Allergies No known active allergies Medications clobetasol (TEMOVATE) 0.05 % cream Apply 0.05 mg topically 2 times daily. Active LISINOPRIL ORAL Take 20 mg by mouth. Active pantoprazole (PROTONIX) 40 mg Oral Tablet, Delayed Release (E.C.) Take 40 mg by mouth daily. Active metoprolol (LOPRESSOR) 25 mg Oral Tablet Take 25 mg by mouth 2 times daily. Active Vit D3 & S-Hqckiogls-Yqz s [phone] vqff-fcn-mp-mg Oral Tablet Take by mouth. Act salty ibuprofen (ADVIL;MOTRIN) 200 mg Oral Tablet Take 200 mg by mouth every 8 hours as needed for Pain. Active Active Problems Problem Noted Date Diagnosed Date Mass of left hip region 03/10/2019 Surgical History Surgery Date Site/Laterality Comments HERNIA REPAIR X2 SOFT TISSUE BIOPSY 04/08/2019 Left Excisional Biopsy Left Gluteal Mass; Surgeon: Gregorio Schroeder MD; Location: [facility] MAIN OR; Service: General Medical History Medical [...] on file Sexual Orientation Not on file Last Filed Vital Signs Vital Sign Reading [...] Virtual Colonography 2022 COVID-19 Vaccine (1 - 2024-2 6 season) 2025 Influenza Vaccine (#1) 2025 Meningococcal B Vaccine Aged Out No l onger eligible based on patient's age to complete this topic Pneumococcal Vaccine 0-49 Aged Out No longer eligible based on patient's age to complete this topic Insurance PPO [facility] PPO Care Teams Firmware Engineer Relationship Specialty Start Date End Date Danelle Garrett [address] [facility] [address] [place] [address] PCP - General Family Medicine 03/21/12
--- OUTSIDE RECORDS SUMMARY | 2025-03-19 10:25 | XMS_ITS | Encounter Summary ---
Author Organization [facility] 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 Social History [...] 02/03/2019 11:05 AM EDT [facility] P[facility] Stain Moderate WBCs(A) 02/03/2019 11:05 AM EDT [facility] Stain Abundant Gram positive cocci(A) 02/03/2019 11:05 AM EDT [facility] Stain Abundant Gram negative rods(A) 02/03/2019 11:05 AM EDT [facility] Stain Few Gram positive rods(A) 02/03/2019 11:05 AM EDT [facility] Swab BUTTOCK STRUCTURE / Unknown 01/30/2019 5:00 PM EDT 01/30/2019 7:23 PM EDT [facility]WRIGHT MICROBIOLOGY - GENERAL ORDERABLES Final Result [facility] [address] [facility] , [place] [address] documented in this encounter Visit Diagnoses Diagnosis 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
--- OUTSIDE RECORDS SUMMARY | 2025-03-19 10:25 | XMS_ITS | Encounter Summary ---
Author Organization [place] Address [facility] [place] [address] Care Team Providers Care Cloth Coverer Name Role Phone Tami Danelle Ponce Primary Care Provider [phone] Encounter Details Date Type Department Care Team (Latest Contact Info) Description 08/27/2018 Lab Requisition EDG LABORATORY [facility] [place] [address] [address], [facility] [address] [place] [address] Systemic lupus erythematosus with organ [...] 1.30 mg/dL 08/27/2018 7:25 PM EDT [facility] [employer] GFR Afr Am 116 >=60 mL/min/1.7 3 m2 08/27/2018 7:25 PM EDT [facility] GFR Non Afr Am 100 >=60 mL/min/1.7 3 m2 08/27/2018 7:25 PM EDT [facility] Comment: This estimated GFR was [...] EDT 08/27/2018 6:41 PM EDT Beth Rincon [facility] CHEMISTRY ORDERABLES Fi nal Result [employer] [facility] [address] [facility] , [place] [address] [facility] [address] [place] [address] * (ABNORMAL) CBC WITH DIFF (08/27/2018 4:00 PM EDT) WBC 4.0 3.7 - 10.3 x10(3)/mcL 08/27/2018 7:06 PM EDT [employer] [facility] RBC 4.38(L) 4.60 - 6.10 x10(6)/mcL 08/27/2018 [...] 7:06 PM EDT [facility] Wh[employer]ide Percent 11.7 % 08/27/2018 7:06 PM EDT [...] x10(3)/mcL 08/27/2018 7:06 PM EDT [facility], [facility] Whiteside # 0.5 0.3 - 0.9 x10(3)/mcL 08/27/2018 7:06 PM EDT [facility], [facility] Eos# 0.1 0.0 - 0.5 x10(3)/mcL 08/27/2018 7:06 PM EDT [facility] [employer], [facility] Baso # 0.0 0.0 - 0.1 x10(3)/mcL 08/27/2018 7:06 PM EDT [facility], [facility] Blood VENOUS BLOOD / Unknown 08/27/2018 4:00 PM EDT 08/27/2018 6:41 PM EDT [facility] WaynePharmAkea [facility] HEMATOLOGY ORDERABLES F inal Result Performing Organization Address City/[facility] Co de Phone Number [facility] [employer] , [place] [address] * BLOOD UREA NITROGEN (08/27/2018 4:00 PM EDT) [facility] BUN 10 6 - 20 mg/dL 08/27/2018 7:25 PM EDT [facility] Blood VENOUS BLOOD / Unknown 08/27/2018 4:00 PM EDT 08/27/2018 6:41 PM EDT [facility] WayneApplied Cell TechnologyCon[facility] CHEMISTRY ORDERABLES Fi nal Result Performing Organization Address [facility] Co de Phone Number [address] , [place] [address] * (ABNORMAL) ANTINUCLEAR ANTIBODY SCREEN (08/27/2018 4:00 PM EDT) [facility] YOLANDA, IgG Positive( A) Negative, Equivocal 08/28/2018 2:27 PM EDT [facility] Comment: YOLANDA samples are screened using an automated EIA assay. All samples that screen positive are titered by an IFA method and will include an YOLANDA pattern. A titer of < 1:80 is considered clinically insignificant. In general, a titer >= 1:160 is considered significant positive. YOLANDA Titer <1:80 <1:80 08/28/2018 2:27 PM EDT [facility] [employer] Blood VENOUS BLOOD / Unknown 08/27/2018 4:00 PM EDT 08/27/2018 6:41 PM EDT [facility] Way[facility] R[facility] IMMUNOLOGY ORDERABLES F inal Result [employer] [address] [facility] , [place] [address] documented in this encounter Visit Diagnoses Diagnosis Systemic lupus erythematosus with organ system involvement (HCC) Systemic lupus erythematosus documented in this encounter Care Teams Cloth Coverer Relationship Specialty Start Date End Date Danelle Garrett [address] [place] [address] [address] [place] [address] PCP - General Family Medicine 03/21/12 documented as of this encounter
--- NOTE | 2025-03-19 11:00 | US_ITS ---
FINAL REPORT TECHNIQUE: Ultrasound images of the kidneys and bladder were obtained. CLINICAL HISTORY: hypertension FINDINGS: The right kidney measures 11.8 cm in length. It is normal in echogenicity. There is no hydronephrosis. The left kidney measures 11.1 cm in length. It is normal in echogenicity. There is no hydronephrosis. IMPRESSION: Unremarkable renal ultrasound. Reviewed, Interpreted and Dictated by Chester Leal MD Transcribed by Ela Daniel Authenticated and [facility]
== END 2025-03-19 23:59 | disposition home or self-care (01) ==
LOC: RT 09:59
PROVIDERS: PCP Nurse Practitioner; Visit Provider Physician Assistant
DX: R93.1 Abnormal findings on diagnostic imaging of heart and coronary circulation (principal); I10 Essential (primary) hypertension; F17.200 Nicotine dependence, unspecified, uncomplicated; R06.81 Apnea, not elsewhere classified; Z87.898 Personal history of other specified conditions; R94.31 Abnormal electrocardiogram [ECG] [EKG]
CPT/HCPCS: 76770; 93306